=== PATIENT | male | born 1990 | race African-American/Black ===

== ENCOUNTER 2016-12-14 01:20 | Emergency (ER) | payer OTHER ==
[2016-12-14] MEDS ORDERED: PREDNISONE 10 MG TAB ONE (01:55)
[2016-12-14] MEDS ORDERED: PREDNISONE 50 MG TAB ONE (01:55)
== END 2016-12-14 02:51 | disposition home or self-care (01) ==
LOC: ER 01:20
DX: J02.0 Streptococcal pharyngitis (principal); L50.9 Urticaria, unspecified
CPT/HCPCS: 99283; J7512